=== PATIENT | female | born 1990 | race Two or more races ===

== ENCOUNTER → 2024-03-26 | Outpatient (CLI) | payer MEDICAID, SELFPAY ==
--- NOTE | 2024-03-26 09:00 | XR_ITS ---
Examination: CT abdomen with intravenous contrast. Coronal 2-D reconstructions. Sagittal 2-D reconstructions. Date and time of exam:March 18, 2024 0943 hours INDICATIONS: Diagnosis idiopathic acute pancreatitis without necrosis generalized abdominal pain beginning November 2023 CTDI: vol (mGy): 12.8 DLP: (mGycm): 460 Technique: Axial images of the abdomen have been obtained, 3 mm slice thickness, 60 cc [id number] 2-D sagittal coronal reconstructions Low dose protocols were performed. One or more of the following dose reduction techniques were used; automated exposure control, adjustment of the mA and/or KV according to patient size, use of iterative reconstruction technique. Findings: No focal liver or splenic lesions No gallstones No current pancreatic edema No renal calculi 10 mm fat-containing mass anterior right kidney consistent with angiomyolipoma Aorta normal size Absent appendix No bowel obstruction IMPRESSION: No current pancreatitis 10 mm angiomyolipoma right kidney
[2024-03-26 09:26] LABS: HCG Qualitative,Urine Negative
== END | disposition home or self-care (01) ==
PROVIDERS: PCP Specialist; Referring Provider Specialist; Visit Provider Specialist
DX: D17.71 Benign lipomatous neoplasm of kidney (principal); Z32.00 Encounter for pregnancy test, result unknown
CPT/HCPCS: 74160; 81025; A4649; Q9967